=== PATIENT | male | born 1995 | race Two or more races ===

== ENCOUNTER → 2017-07-07 | Outpatient (CLI) | payer MEDICARE, MEDICAID ==
[2017-07-07 15:51] LABS: THYROID STIMULATING HORMONE 1.1 uIU/mL (0.47-4.68)
== END ==
LOC: OD 13:46
PROVIDERS: ATTEND Psychiatry & Neurology Psychiatry
DX: Z79.899 Other long term (current) drug therapy (principal); F31.81 Bipolar II disorder
CPT/HCPCS: 36415; 84439; 84443

== ENCOUNTER 2018-09-01 16:57 | Emergency (ER) | payer MEDICARE, MEDICAID ==
--- NOTE | 2018-09-01 17:52 | ER Document Report ---
ED Medical Screen (RME) - General Chief Complaint: Nose Bleed Stated Complaint: NOSEBLEED Time Seen by Provider: 09/01/18 17:49 Primary Care Provider: SABA ROBLES MD [Primary Care Provider] - Follow up as needed Notes: Patient with nosebleed since last night. History of many but nosebleeds in the past. No trauma. Not on any blood thinning medicines. History of allergies on Zyrtec and Singulair. Hx: Bipolar disorder. TRAVEL OUTSIDE OF THE [place] IN LAST 30 DAYS: No - Related Data Allergies/Adverse Reactions: sulfamethoxazole [From ] Allergy (Verified 09/01/18 16:58) trimethoprim [From ] Allergy (Verified 09/01/18 16:58) Past Medical History - Past Medical History Cardiac Medical History: Denies: Hx Heart Attack, Hx Hypertension Pulmonary Medical History: Reports: Hx Asthma Neurological Medical History: Denies: Hx Cerebrovascular Accident, Hx Seizures GI Medical History: Denies: Hx Hepatitis, Hx Hiatal Hernia, Hx Ulcer Psychiatric Medical History: Reports: Hx Anxiety, Hx Attention Deficit Hyperactivity Disorder, Hx Depression Infectious Medical History: Denies: Hx Hepatitis Past Surgical History: Denies: Hx Open Heart Surgery, Hx Pacemaker - Immunizations Immunizations up to date: Yes Hx Diphtheria, Pertussis, Tetanus Vaccination: Yes Physical Exam - Vital signs Vitals: Temp Pulse Resp BP Pulse Ox 98.4 F 94 15 132/70 H 100 09/01/18 17:08 09/01/18 17:08 09/01/18 17:08 09/01/18 17:08 09/01/18 17:08 Course - Vital Signs Vital signs: Temp Pulse Resp BP Pulse Ox 98.4 F 94 15 132/70 H 100 09/01/18 17:08 09/01/18 17:08 09/01/18 17:08 09/01/18 17:08 09/01/18 17:08 Doctor's Discharge - Discharge Referrals: SABA ROBLES MD [Primary Care Provider] - Follow up as needed
[2018-09-01] MEDS ORDERED: OXYMETAZOLINE HCL 0.05% NASAL SPRAY 15 ML BOTTLE ONE (18:35)
--- NOTE | 2018-09-01 18:43 | ER Document Report ---
ED General - General Chief Complaint: Nose Bleed Stated Complaint: NOSEBLEED Time Seen by Provider: 09/01/18 17:49 Primary Care Provider: SABA ROBLES MD [NO LOCAL MD] - Follow up as needed Notes: Patient is a 23-year-old male with a past medical history of recurrent nosebleeds with complaints of bleeding from his right nostril for the past 24 hours. Bleeding is intermittent. Controlled by direct pressure. Nothing worsens the bleeding. History of similar symptoms in the past for which he has had to see ENT. Does admit to frequently picking his nose. Denies any lightheadedness, orthostasis, or syncope. No history of anemia. TRAVEL OUTSIDE OF THE [place] IN LAST 30 DAYS: No - Related Data Allergies/Adverse Reactions: sulfamethoxazole [From ] Allergy (Verified 09/01/18 16:58) trimethoprim [From [facility]] Allergy (Verified 09/01/18 16:58) Past Medical History - General Information source: Patient, Relative - Social History Smoking Status: Never Smoker Frequency of alcohol use: None Drug Abuse: None Lives with: Family Family History: Reviewed & Not Pertinent, Other Patient has suicidal ideation: No Patient has homicidal ideation: No - Past Medical History Cardiac Medical History: Denies: Hx Heart Attack, Hx Hypertension Pulmonary Medical History: Reports: Hx Asthma Neurological Medical History: Denies: Hx Cerebrovascular Accident, Hx Seizures Renal/ Medical History: Denies: Hx Peritoneal Dialysis GI Medical History: Denies: Hx Hepatitis, Hx Hiatal Hernia, Hx Ulcer Psychiatric Medical History: Reports: Hx Anxiety, Hx Attention Deficit Hyperactivity Disorder, Hx Bipolar Disorder, Hx Depression Infectious Medical History: Denies: Hx Hepatitis Past Surgical History: Reports: Hx Nose Surgery. Denies: Hx Open Heart Surgery, Hx Pacemaker - Immunizations Immunizations up to date: Yes Hx Diphtheria, Pertussis, Tetanus Vaccination: Yes Review of Systems - Review of Systems Notes: Constitutional: Negative for fever. HENT: Positive for nosebleed Eyes: Negative for visual changes. Cardiovascular: Negative for chest pain. Respiratory: Negative for shortness of breath. Gastrointestinal: Negative for abdominal pain, vomiting or diarrhea. Genitourinary: Negative for dysuria. Musculoskeletal: Negative for back pain. Skin: Negative for rash. Neurological: Negative for headaches, weakness or numbness. 10 point ROS negative except as marked above and in HPI. Physical Exam - Vital signs Vitals: Temp Pulse Resp BP Pulse Ox 98.4 F 94 15 132/70 H 100 09/01/18 17:08 09/01/18 17:08 09/01/18 17:08 09/01/18 17:08 09/01/18 17:08 Interpretation: Normal Notes: PHYSICAL EXAMINATION: GENERAL: Well-appearing, well-nourished and in no acute distress. HEAD: Atraumatic, normocephalic. EYES: Pupils equal round and reactive to light, extraocular movements intact, sclera anicteric, conjunctiva are normal. ENT: Swollen nasal turbinates on the left, there is an area of excoriation along the posterior nasal septum on the right with a clot overlying the area. NECK: Normal range of motion, supple without lymphadenopathy LUNGS: Breath sounds clear to auscultation bilaterally and equal. No wheezes rales or rhonchi. HEART: Regular rate and rhythm without murmurs ABDOMEN: Soft, nontender, normoactive bowel sounds. No guarding, no rebound. No masses appreciated. EXTREMITIES: Normal range of motion, no pitting or edema. No cyanosis. NEUROLOGICAL: No focal neurological deficits. Moves all extremities spontaneously and on command. PSYCH: Normal mood, normal affect. SKIN: Warm, Dry, normal turgor, no rashes or lesions noted. Course - Re-evaluation Re-evalutation: 09/01/18 18:42 Presentation of a well-appearing 23-year-old male in no acute distress who was complaining of bleeding from the left nostril for the past 12-24 hours. No active bleeding at the time of my assessment. Patient does admit to picking his nose aggressively, there was a small internal laceration along the mid nasal septum which was cauterized using silver nitrate without complication. Oxymetazoline was instilled into both nostrils. Patient was observed for approximately 1 hour without any evidence of rebleeding. Hemodynamics within normal limits. Patient is otherwise young and healthy, I do not see any immediate indication to check CBC or additional labs. No history of bleeding diatheses. Has a history of the same and has seen ENT in the past. At this time will discharge with return precautions and follow-up recommendations. Verbal discharge instructions given a the bedside and opportunity for questions given. Medication warnings reviewed. Patient is in agreement with this plan and has verbalized understanding of return precautions and the need for primary care follow-up in the next 24-72 hours. - Vital Signs Vital signs: Temp Pulse Resp BP Pulse Ox 97.7 F 75 18 118/68 99 09/01/18 19:30 09/01/18 19:30 09/01/18 19:30 09/01/18 19:30 09/01/18 19:30 Discharge - Discharge Clinical Impression: Epistaxis Condition: Good Disposition: HOME, SELF-CARE Additional Instructions: You were seen today for a nosebleed. If this restarts please apply direct pressure to the area for 15 minutes without releasing pressure. You can use 4-5 sprays the Afrin (oxymetazoline) spray that was given to you here in the emergency room into the affected side prior to applying the pressure. You need to apply vasaline or a similar product along the inside of the side of the nose that is bleeding twice daily to help heal the inside of your nose. Please return to emergency department if these measures do not control the bleeding. Please also return if you pass out, have significant pain of the nose or face, or any other symptoms that are concerning to you. Your primary care doctor regarding today's visit.it. Referrals: SABA ROBLES MD [NO LOCAL MD] - Follow up as needed
[2018-09-01 19:31] VITALS: BP 118/68
== END 2018-09-01 19:32 | disposition home or self-care (01) ==
LOC: ER 16:57
DX: R04.0 Epistaxis (principal)
CPT/HCPCS: 99283